=== PATIENT | female | born 1980 | race Asian ===

== ENCOUNTER 2017-12-31 07:51 | Emergency (ER) | payer OTHER, BC ==
[2017-12-31 08:03] VITALS: BP 128/68; PULSE 82; TEMP 98; BMI 30.1
[2017-12-31] MEDS ORDERED: ACETAMINOPHEN 325 MG TABLET (FP) PO ONE (08:21)
[2017-12-31] MEDS ORDERED: ACETAMINOPHEN 325 MG TABLET (FP) ONE (08:24)
--- NOTE | 2017-12-31 08:30 | PDOC ---
History of Present Illness - General Chief Complaint: Injury Stated Complaint: HEAD INJURY Time Seen by Provider: 12/31/17 08:11 History Source: Patient Exam Limitations: No Limitations - History of Present Illness Initial Comments: 12/31/17 08:30 37 yr female hit the top of her head with small laceration after hitting her head on an air conditioner unit this AM. no LOC no headache or neck pain. Past History - Past Medical History Allergies/Adverse Reactions: Allergies Allergy/AdvReac Type Severity Reaction Status Date / Time No Known Allergies Allergy Verified 12/31/17 08:00 Asthma: No Cancer: No Cardiac Disorders: No COPD: No Diabetes: No HTN: No Seizures: No Thyroid Disease: No - Suicide/Smoking/Psychosocial Hx Smoking History: Never smoked Have you smoked in the past 12 months: No Information on smoking cessation initiated: No Hx Alcohol Use: No Drug/Substance Use Hx: No Substance Use Type: None Hx Substance Use Treatment: No Review of Systems - Review of Systems Able to Perform ROS?: Yes Is the patient limited [place]ian proficient: No Constitutional: No: Symptoms Reported HEENTM: No: Symptoms Reported Respiratory: No: Symptoms reported Cardiac (ROS): No: Symptoms Reported ABD/GI: No: Symptoms Reported : No: Symptoms Reported Musculoskeletal: No: Symptoms Reported Integumentary: Yes: Symptoms Reported *Physical Exam - Vital Signs Last Vital Signs Temp Pulse Resp BP Pulse Ox 98.0 F 82 18 128/68 100 12/31/17 08:00 12/31/17 08:00 12/31/17 08:00 12/31/17 08:00 12/31/17 08:00 - Physical Exam General Appearance: Yes: Nourished, Appropriately Dressed HEENT: positive: EOMI, CINDY Neck: positive: Supple. negative: Tender Respiratory/Chest: negative: Chest Tender, Lungs Clear, Normal Breath Sounds Cardiovascular: negative: Regular Rhythm, Regular Rate Extremity: positive: Normal Capillary Refill, Normal Inspection, Normal Range of Motion Integumentary: positive: Normal Color, Dry, Warm Neurologic: positive: Fully Oriented, Alert, Normal Mood/Affect, Normal Response , Motor Strength 5/5 Procedures - Laceration/Wound Repair Head Wound Length: to 2.5 cm Wound Explored: clean Wound's Depth, Shape: superficial Betadine Prep: Yes Progress: 12/31/17 08:32 bacitracin placed Medical Decision Making - Medical Decision Making 12/31/17 08:26 CC: HIT HEAD ON air conditioner at work this AM no LOC, pt has small laceration to the scalp . no bleeding , tetanus is UTD. no headache no vomiting no neck pain wound cleaned and irrigated betadine and bacitracin placed *DC/Admit/Observation/Transfer Diagnosis at time of Disposition: Laceration - Discharge Dispostion Disposition: HOME Condition at time of disposition: Good - Referrals - Patient Instructions Additional Instructions: KEEP CLEAN AND APPLY A THIN LAYER OF BACITRACIN UNTIL HEALED WASH HAIR NORMAL FOLLOW WITH YOUR DOCTOR FOR ANY WORSENING SYMPTOMS - Post Discharge Activity
== END 2017-12-31 08:37 | disposition home or self-care (01) ==
LOC: JERFT 07:51
DX: S01.01XA Laceration without foreign body of scalp, initial encounter (principal); W22.8XXA Striking against or struck by other objects, initial encounter; Y93.89 Activity, other specified; Y92.238 Other place in hospital as the place of occurrence of the external cause; Y99.0 Civilian activity done for income or pay
CPT/HCPCS: 99281-25